=== PATIENT | female | born 1990 | race Hispanic/Latino ===

== ENCOUNTER 2016-08-27 09:27 | Emergency (ER) | payer MEDICARE ==
[~2016-08-27] VITALS: Ht 154.9 cm; Wt 66.8 kg
[2016-08-27 09:31] VITALS: BP 128/80; PULSE 79; RESP 18; O2SAT 96
--- NOTE | 2016-08-27 09:54 | ED.REPORT ---
HPI-NVD Date of Service August 27, 2016 ED Provider: Jewel Bautista MD Patient is a 25 year old female with a history of bipolar disorder who presents to the ED complaining of intermittent abdominal pain onset two weeks ago. Associated symptoms include nausea, vomiting, a productive cough with white sputum and nasal congestion. She denies dysuria and fever. The patient reports that eating food makes it worse. Nursing Notes Stated Complaint: THROWING UP, DIZZY Chief Complaint: Female Abdominal Pain Nursing Notes Reviewed: Yes ([employer] eWater not reconciled) Allergies: Coded Allergies: No Known Allergies (Unverified , 08/27/16) Scheduled Omeprazole (Omeprazole) 20 Mg Tablet.dr 20 MG PO DAILY Scheduled PRN Ondansetron ODT (Ondansetron ODT) 8 Mg Tab.rapdis 8 MG PO Q4H PRN PRN For Nausea General Time Seen by MD: 09:53 Chief Complaint Abd pain, intermittent Hx Obtained From: Patient Arrived By: Walk-in Onset Occurred: More than a week ago... (2 weeks) Symptom Duration: Intermittent Location: : Epigastric Radiation: : Does not radiate Severity: Current: Pain level 8 out of 10 Recent Healthcare: No recent doctor visit, No recent hospitalization Past Medical History Past Medical History bipolar disorder Past Surgical History denies Smoking History Light Tobacco Smoker Social History Other Social History: From out of town Ambulatory Status Independent Review of Systems Constitutional: Denies: Fever GI: Reports: Abdominal pain, Nausea, Vomiting Complete sys rev & neg: except as marked. Respiratory: Reports: Prod cough, white, Denies: Shortness of breath Female: Denies: Dysuria Physical Exam Initial Vital Signs Vital Signs (First) Date Time Temp Pulse Resp B/P Pulse Ox O2 Delivery O2 Flow Rate FiO2 08/27/16 09:31 36.4 79 18 128/80 96 Room Air Initial VS: Reviewed, Vital signs normal General/Constitutional: Awake, Alert, Well appearing, Well hydrated Abdomen: Atraumatic, Soft Tenderness/Guarding/Rebound: Positive: Tender epigastric, Negative: Tender RUQ... Respiratory / Chest: Atraumatic, No respiratory distress Skin: Atraumatic, Color NL, No rash, Warm, Dry Neurologic: Oriented X3, Speech NL, No motor deficits, No sensory deficits Head / Eyes: Atraumatic, Normocephalic, PERRL, EOMI Upper Extremity / MS: Atraumatic, Full range of motion Psychiatric: Affect NL, Mood NL Interpretation & Diagnostics Interpretation & Diagnostics: ABDOMEN US: FINDINGS: Normal gallbladder wall thickness. No pericholecystic fluid. Negative sonographic Boo's sign. No shadowing calculi. The pancreas is ultrasonographically normal. IMPRESSION: No ultrasonographic evidence of acute cholecystitis. No ultrasonographic etiology for the patient's right upper quadrant pain. Dictated by: Jarek Olivares M.D. on 08/27/2016 at 11:26 Approved by: Jarek Olivares M.D. on 08/27/2016 at 11:27 Lab Results Interpretation Result Diagram: 08/27/16 1040 08/27/16 1040 Test 08/27/16 10:00 08/27/16 10:40 Hold Urine Received (Received) White Blood Count 4.5th/mm3 (3.8-10.1) Red Blood Count 3.47mil/mm3 (3.90-5.20) Hemoglobin 10.9g/dL (12.0-15.6) Hematocrit 31.4% (35.0-46.0) Mean Corpuscular Volume 90.5fL (81-100) Mean Corpuscular Hemoglobin 31.4pg (27.0-35.0) Mean Corpuscular Hemoglobin Concent 34.7% (32.0-37.0) Red Cell Distribution Width 15.0% (12.3-15.4) Platelet Count 238bil/L (150-400) Neutrophils (%) (Auto) 52.3% (40-74) Lymphocytes (%) (Auto) 37.9% (14-46) Monocytes (%) (Auto) 6.3% (4-12) Eosinophils (%) (Auto) 3.1% (0-5) Basophils (%) (Auto) 0.4% (0-3) Sodium Level 135mEq/L (134-144) Potassium Level 4.1mEq/L (3.5-5.2) Chloride Level 101mEq/L (97-108) Carbon Dioxide Level 23mmol/L (18-29) Blood Urea Nitrogen 15mg/dL (6-20) Creatinine 0.51mg/dL (0.57-1.00) Estimat Glomerular Filtration Rate 210mL/min (>59) Glucose Level 91mg/dL (60-99) Calcium Level 9.2mg/dL (8.5-10.1) Total Bilirubin 1.1mg/dL (0.0-1.2) Aspartate Amino Transf (AST/SGOT) 18U/L (0-50) Alanine Aminotransferase (ALT/SGPT) 6U/L (0-32) Alkaline Phosphatase 53U/L (25-150) Total Protein 6.9g/dL (6.4-8.4) Albumin 4.0g/dL (3.4-5.0) Lipase 12U/L (13-60) Hold Ernst Top Tube Received (Received) Lab Results Interpretation: Urine dip negative CBC normal CMP normal Lipase normal Re-Eval/Medical Decision Med Decision/Clinical Course This is a pleasant 25-year-old female visiting from [place] for a few weeks reports for the past several weeks she has had morning nausea and vomiting, and some epigastric discomfort, due to persistence is coming to the department. She denies fevers or chills, reports by the afternoon the symptoms are generally resolved. She has tried Tums without relief. Her history of gallbladder or pancreatic pathology. She denies a history of alcohol or drugs. She has had some sort of similar symptoms although less severe for which she saw her PCP [place] was given an unknown medicine which she did not think helped. However she cannot give me much additional history regarding the specifics. Department she clinically appears well, smiling and is not visible discomfort. Her abdomen is quite benign and she has mild epigastric tenderness, without guarding or rebound. I do not appreciate christel right upper quadrant tenderness or positive Boo's. was negative, urine dip was negative. Blood work was normal. Ultrasound of the abdomen was normal. Patient sees some pain medicine fluids and antiemetics and feels much improved. I am not finding evidence of an acute surgical abdomen. A definitive diagnosis has not been established I, gastritis is in the differential. The plan is to discharge him. Trial of a PPI therapy along with some when necessary ondansetron. Routine and return precautions reviewed. Patient's discharge and much improved condition. Source of Hx: Old records Re-Evaluation/Progress : Time of Eval: 12:43 Re-Evaluation/Progress Note: Discussed results and plan for discharge. The patient understands and agrees to the plan for discharge. All questions were addressed. Differential Diagnosis: Negative: Acute gastroenteritis, Appendicitis, Boerhaave syndrome, Bowel obstruction, C. diff colitis, Cholecystitis, Dehydration, Diabetes mellitus, Diabetic ketoacidosis, Krista-Ray syndrome, Meniere's disease, Pancreatitis, Peptic ulcer disease, Counseled Regarding: Diagnosis, Lab results, Need for follow-up, When/why to return to ED Discharge & Departure Impression: Primary Impression: Abdominal Pain, Epigastric Additional Impression: Nausea Disposition: Home Discharge Condition All VS Reviewed: Yes Condition: Stable Additional Instructions: 1. A dangerous cause of the nausea and discomfort was not identified. Her blood tests were normal. And her ultrasound was normal and did not reveal any signs of gallstones or gallbladder problems. 2. It does remain possible that her symptoms are from gastritis a type of stomach inflammation that does not show up on the type of test we could do the emergency department. I do recommend taking a course of the medication omeprazole 20 mg daily for the next 4 weeks. This medicine often helps, but it does require taking it for a week before it really makes and affect. 3. Take ondansetron 8 mg-like dissolve the tongue-up to every 4 hours if needed for nausea. 4. You do need to follow up with your doctor in [place] when you return home in in a few weeks. However. Worsening symptoms in the interim, return to the emergency department. Loli Attestation Portions of this note were transcribed by Rosemary Solis. I, Dr. Bautista personally performed the history, physical exam and medical decision-making; I reviewed and confirmed the accuracy of the information in the transcribed note. Signed by: Loli Morales, 08/27/16 and 1030 Jewel Bautista MD August 27, 2016 09:54 Mana Solis August 27, 2016 10:19
[2016-08-27] MEDS ORDERED: HYDROmorphone 0.5 mg/0.5 mL iSecure Syringe IVPUSH ONE (10:20)
[2016-08-27] MEDS ORDERED: Ondansetron 2 mg/mL 2 mL Inj IVPUSH ONE (10:20)
[2016-08-27] MEDS ORDERED: 0.9% Sodium Chloride 1,000 ML IV ONE (10:20)
[2016-08-27 10:54] LABS: BASOPHILS % (AUTO) 0.4 % (0-3); EOSINOPHILS % (AUTO) 3.1 % (0-5); MONOCYTES % (AUTO) 6.3 % (4-12); Mean Corpuscular Hemoglobin 31.4 pg (27.0-35.0); Mean Corpuscular Volume 90.5 fL (81-100); NEUTROPHILS % (AUTO) 52.3 % (40-74); Platelet Count 238 bil/L (150-400)
--- NOTE | 2016-08-27 11:29 | DRSVH ---
PROCEDURE: US ABDOMEN, LIMITED ([id number]) INDICATIONS: RUQ/epigastric pain TECHNIQUE: Real-time focused scanning was performed of the abdomen with attention to the appendix, with image do cumentation. COMPARISON: None. FINDINGS: Normal gallbladder wall thickness. No pericholecystic fluid. Negative sonographic Boo's sign. No s hadowing calculi. The pancreas is ultrasonographically normal. IMPRESSION: No ultrasonographic evidence of acute cholecystitis. No ultrasonographic etiology for the patient's right upper quadrant pain. Dictated by: Jarek Olivares M.D. on 08/27/2016 at 11:26 Approved by: Jarek Olivares M.D. on 08/27/2016 at 11:27
[2016-08-27] MEDS ORDERED: HYDROmorphone 1 mg/mL Inj IVPUSH ONE (11:35)
[2016-08-27 12:10] VITALS: BP 102/57; PULSE 72; RESP 17; O2SAT 98
[2016-08-27] MEDS ORDERED: ONDA8TAB10 PO (12:24)
[2016-08-27] MEDS ORDERED: OMEP20TA86 PO (12:24)
[2016-08-27 13:18] VITALS: BP 129/68; PULSE 71; RESP 17; O2SAT 99
== END 2016-08-27 13:22 | disposition home or self-care (01) ==
LOC: SED 09:27
DX: R10.13 Epigastric pain (principal); R11.2 Nausea with vomiting, unspecified; R05 Cough; R09.81 Nasal congestion; F31.9 Bipolar disorder, unspecified; F17.200 Nicotine dependence, unspecified, uncomplicated
CPT/HCPCS: 36415; 76705; 80053; 81025; 83690; 85025; 96361; 96374; 96375; 96376; 99285; J1170; J2405; J7030